=== PATIENT | female | born 1965 | race African-American/Black ===

== ENCOUNTER 2016-12-19 17:50 | Emergency (ER) | payer OTHER ==
[~2016-12-19] VITALS: Ht 170.2 cm; Wt 93.0 kg
[2016-12-19] MEDS ORDERED: PREDNISONE EYE DROPS (18:33)
[2016-12-19] MEDS ORDERED: RANI150C12 PO (18:33)
[2016-12-19] MEDS ORDERED: PREDNISONE 20MG TABLET PO ONE (22:15)
[2016-12-19 22:20] VITALS: BP 133/74
== END 2016-12-19 22:50 | disposition home or self-care (01) ==
LOC: ER 17:50
DX: S20.162A Insect bite (nonvenomous) of breast, left breast, initial encounter (principal); L03.818 Cellulitis of other sites; S80.861A Insect bite (nonvenomous), right lower leg, initial encounter; L03.115 Cellulitis of right lower limb; S30.860A Insect bite (nonvenomous) of lower back and pelvis, initial encounter; L50.8 Other urticaria; H54.0 Blindness, both eyes; W57.XXXA Bitten or stung by nonvenomous insect and other nonvenomous arthropods, initial encounter; Y93.89 Activity, other specified; Y92.89 Other specified places as the place of occurrence of the external cause; R03.0 Elevated blood-pressure reading, without diagnosis of hypertension; Z98.890 Other specified postprocedural states
CPT/HCPCS: 99283; J7512